=== PATIENT | male | born 1970 | race Caucasian/White ===

== ENCOUNTER 2024-11-07 13:34 | Emergency (ER) | payer MEDICAID ==
[~2024-11-07] VITALS: Ht 170.2 cm; Wt 125.0 kg
--- NOTE | 2024-11-07 14:05 | ELECTROCARDIOGRAPH REPORT ---
[facility] Test Date: 2024-11-07 Test Time: 14:03:44 Pat Name: ROOSEVELT ENCARNACION Department: [facility]- Patient ID: [facility]-[id number] Room: Gender: M [employer] Drawer In: : 1970 Requested By: GIANCARLO GARCIA Order Number: [id number] Reading MD: Measurements Intervals [place] Rate: 50 P: 17 MA: 177 QRS: 63 QRSD: 146 T: 25 QT: 455 QTc: 415 Interpretive Statements Sinus bradycardia Right bundle branch block Baseline wander in lead(s) III Please click the below link to view image of tracing.
[2024-11-07] MEDS: normal saline 1000ML IV soln IVB ONE (14:25)
[2024-11-07] MEDS: ketorolac trometh 30MG/ML vial 30 MG/ML VIAL IV ONE ×2 (14:25→17:57)
--- NOTE | 2024-11-07 14:30 | Physician Documentation ---
History of Present Illness ~ Chief Complaint: Headache Stated Complaint: MIGRAINE Time Seen by MD: 14:18 Source: patient Mode of Arrival: EMS, Ambulatory Exam Limitations: no limitations HPI 54-year-old male with complaints of migraine headache for 3 weeks. Patient states that this was onset a fall 3 weeks ago where he landed on his knee and his back he has been evaluated by his primary care provider patient lives in [place] but came down here because he felt like he was getting better care. Patient has an MRI scheduled for his lumbar spine on November 28, 2024. Patient called a nursing hotline who told him to come in due to the migraine for 3 weeks. No weakness, chest pain or shortness of breath. Patient is on morphine at home for chronic pain and states that that did not help his migraine headache. Other medications [id number] included aspirin ibuprofen and Tylenol which did not help his migraine headache. Patient endorses photosensitivity and sensitivity to sound Medication Reconciliation Allergies: Coded Allergies: methadone (Verified Allergy, Severe, 11/07/24) Past Medical History Past Medical History: *MUSCULOSKELETAL*, Arthritis, Chronic Pain, Chronic Back Pain, Osteoarthritis Past Surgical History: noncontributory Lives In: Home Occupation: disabled Review of Systems All Other Systems at this time: Reviewed and Negative Neurological: Reports: see HPI Physical Exam Vital Signs: RN Vital Signs have been reviewed: Yes, Temperature: 98.4, Source: Oral, Heart Rate: 57, Respiratory Rate: 18, BP: 124/79, Pulse Oximetry: 93, Weight: 125.000 Oxygen Flow Rate: 0 General Appearance: alert, WD/WN, no apparent distress ENT: normal ENT inspection, PERRL/EOMI, TMs normal, moist mucous membranes, photophobia Nose: normal inspection Oropharynx: normal inspection, moist mucous membranes Head: normal inspection; No: swelling, ecchymosis, deformity Neck: non-tender, full range of motion, supple Respiratory: lungs clear, normal breath sounds, no respiratory distress Chest: no accessory muscle use Cardiovascular: regular rate, rhythm Gastrointestinal: normal palpation, non-tender, bowels sounds present Extremities: normal inspection, normal capillary refill Skin: warm/dry, normal color Neurologic: oriented x4 Motor / Sensory: no pronator drift; No: sensory deficit Psychiatric: normal mood/affect Progress Results/Orders Results/Orders Completed Orders - BRIDGETT HAMILTON MD Dexamethasone Inj (Decadron 10mg/Ml Inj) (11/07/24 20:11) Morphine 4mg/Ml Inj. (Morphine Inj.) (11/07/24 20:15) Medications Received in ER Medications (Trade) Dose Ordered Sig/Corey Route PRN Reason Start Time Stop Time Status Last Admin Dose Admin (morphine inj.) 4 mg ONCE ONCE IV 11/07/24 16:20 11/07/24 16:21 DC 11/07/24 16:25 4 MG (Zofran 4mg/2ml vial) 4 mg ONCE ONCE IV 11/07/24 16:20 11/07/24 16:21 DC 11/07/24 16:25 4 MG (Toradol inj. 30mg/ml) 30 mg ONCE ONCE IV 11/07/24 17:45 11/07/24 17:52 DC 11/07/24 17:57 30 MG (Decadron 10mg/ ml inj) 10 mg ONCE STAT IV 11/07/24 20:11 11/07/24 20:13 DC 11/07/24 20:33 10 MG (morphine inj.) 4 mg ONCE ONCE IV 11/07/24 20:15 11/07/24 20:16 DC 11/07/24 20:34 4 MG Vital Signs 11/07/24 11/07/24 11/07/24 11/07/24 13:37 13:59 14:30 15:35 Temp 98.4 Pulse 57 68 52 Resp 18 14 15 B/P (MAP) 124/79 134/85 (101) 114/82 (93) Pulse Ox 93 97 96 O2 Flow Rate 0 0 0 11/07/24 11/07/24 11/07/24 11/07/24 16:23 18:02 18:22 18:23 Temp 98.3 98.3 Pulse 47 48 60 Resp 16 16 19 19 B/P (MAP) 113/72 (86) 91/71 (78) 95/72 (80) Pulse Ox 97 98 98 O2 Flow Rate 0 0 11/07/24 20:34 Resp 16 Laboratory Tests Test 11/07/24 14:33 White Blood Count 7.6 Red Blood Count 4.98 Hemoglobin 14.6 Hematocrit 42.7 Mean Corpuscular Volume 85.7 Mean Corpuscular Hemoglobin 29.2 Mean Corpuscular Hemoglobin Concent 34.1 Red Cell Distribution Width 15.5 H Platelet Count 291 Mean Platelet Volume 7.3 L Neutrophils (%) (Auto) 57.6 Lymphocytes (%) (Auto) 31.3 Monocytes (%) (Auto) 8.5 Eosinophils (%) (Auto) 2.0 Basophils (%) (Auto) 0.6 Neutrophils # (Auto) 4.4 Lymphocytes # (Auto) 2.4 Monocytes # (Auto) 0.7 Eosinophils # (Auto) 0.2 Basophils # (Auto) 0.0 CBC Comment Sodium Level 137 Potassium Level 4.1 Chloride Level 103 Carbon Dioxide Level 27.0 Anion Gap 7 L Blood Urea Nitrogen 15 Creatinine 0.99 Estimated GFR/1.73 m2 78 BUN/Creatinine Ratio 15.2 Glucose Level 129 H Calcium Level 8.8 Albumin 3.5 Chemistry Comments EKG/XRAY/CT/US/VASC/MRI EKG : Additional Comment EKG 1403 sinus Mykel at 50, right bundle branch block. No acute ST-T abnormality CT : CT: head Impression CT CT HEAD Indication: Migraine x3 weeks EXAM DATE: 11/07/2024 02:36 PM COMPARISON: None TECHNIQUE: CT of the head without intravenous contrast. RADIATION DOSE: CTDIvol: 70 mGy, DLP: 1243 mGy*cm FINDINGS: There is no intracranial hemorrhage. There is a hyperdense lesion near the1 right petroclival junction /right prepontine cistern /right cavernous sinus measuring 2.3 x 2.5 cm The ventricles are midline and normal in size. Basilar cisterns are patent. Miranda-white differentiation is maintained. The paranasal sinuses and mastoids are well-pneumatized. Imaged portion of the orbits are unremarkable. IMPRESSION: Hyperdense lesion/ mass near the right petroclival junction/skull base /right cavernous sinus measuring 2.3 x 2.5 cm. Recommend MRI brain with and without contrast and neurosurgical consultation. Medical Decision Making Findings Patient complains of migraine status post fall which he denies head strike but landed on his knee and is receiving care including an MRI of his lumbar back that is been ordered. Unremarkable neurologic exam. Normal saline Toradol Benadryl and sumatriptan ordered for migraine headache CT scan to evaluate for any acute intracranial processes. CT Indicates a 2.3 x 2.5 mass at the base of the skull. Discussed findings with attending physician Dr. Pickard. Working on transfer with recommendations neurosurgery consult an MRI 183 spoke to transfer center at [facility] 7:00 p.m.: Care the patient was transferred to al from nurse practitioner Latanya. 7:40 p.m.: Case discussed with [facility] transfer center. The case was reviewed with neurosurgeon Dr. Nicola Sal. He reviewed the CT scan and suspect he has a benign meningioma. This does not require admission or transfer. He is happy to follow up with him in his outpatient clinic. However he will need a referral from his primary care doctor. Is also recommended he get an MRI with and without contrast through his primary care doctor. We are unable to obtain MRI after hours here. Patient is neurologically intact. All of the above was reviewed with the patient. Patient is stable for discharge. Requesting another dose of morphine prior to discharge for a severe headache. Patient is also going to be given Decadron 10 mg IV to see if this may help. Differential Dx:Considerations: Include: PATEL-Cluster, PATEL-Migraine, PATEL- Hypertensive, Close head injuyr, CVA, Mass lesion, Post-traumtic, Sinusitis, Temporal arteritis, Trigeminal neuralgia Departure Time of Disposition: 19:42 Disposition: 01 HOME / SELF CARE / HOMELESS Impression: Primary Impression: Headache Qualified Codes: R51.9 - Headache, unspecified Additional Impression: Meningioma Condition: Stable Discharge Instructions: Meningioma Additional Instructions: YOUR BRAIN TUMOR IS LIKELY BENIGN CALLED A MENINGIOMA. YOU MUST FOLLOW UP WITH YOUR PRIMARY CARE DOCTOR SOON POSSIBLE FOR: 1. REFERRAL TO [facility], NEUROSURGEON, DR. NICOLA SAL. OR REFERRAL TO OTHER NEUROSURGEON. 2. ORDER OUTPATIENT MRI WITH AND WITHOUT CONTRAST OF THE BRAIN Education Educated: Patient Educated regarding: diagnosis, treatment, need for follow up Signature Scribe Signature: No scribe Attestation: The note accurately reflects work and decisions made by me.Latanya Cifuentes - [employer] 11/07/24 14:30 LATANYA CIFUENTES NP Nov 07, 2024 14:30 BRIDGETT HAMILTON MD Nov 07, 2024 19:44
--- NOTE | 2024-11-07 14:57 | RADIOLOGY REPORT ---
CT CT HEAD Indication: Migraine x3 weeks EXAM DATE: 11/07/2024 02:36 PM COMPARISON: None TECHNIQUE: CT of the head without intravenous contrast. RADIATION DOSE: CTDIvol: 70 mGy, DLP: 1243 mGy*cm FINDINGS: There is no intracranial hemorrhage. There is a hyperdense lesion near the1 right petroclival junctio n /right prepontine cistern /right cavernous sinus measuring 2.3 x 2.5 cm The ventricles are midline and normal in size. Basilar cisterns are patent. Miranda-white differentiation is maintained. The paranasal sinuses and mastoids are well-pneumatized. Imaged portion of the orbits are unremarkabl e. IMPRESSION: Hyperdense lesion/ mass near the right petroclival junction/skull base /right cavernous sinus measuri ng 2.3 x 2.5 cm. Recommend MRI brain with and without contrast and neurosurgical consultation.
[2024-11-07 15:19] LABS: MEAN PLATELET VOLUME 7.3 FL (7.4-10.4); RED CELL DISTRIBUTION WIDTH 15.5 % (11.5-14.5)
[2024-11-07 15:21] LABS: CREATININE 0.99 MG/DL (0.60-1.10); TOTAL CARBON DIOXIDE 27.0 MMOL/L (24-32); eCRCL 79 ML/MIN; eGFR 78 ML/MIN
[2024-11-07] MEDS: ondansetron/PF 4mg/2ml inj IV ONE (16:25)
[2024-11-07] MEDS: morphine 4 MG/ML inj SYRINge IV ONE ×2 (16:25→20:34)
[2024-11-07 18:02] VITALS: TEMP 98.3
[2024-11-07] MEDS: dexamethasone sod phosphate 10mg/ml inj IV STA (20:33)
[2024-11-07 20:44] VITALS: BP 93/77; PULSE 47; RESP 18; O2SAT 94
== END 2024-11-07 20:47 | disposition home or self-care (01) ==
LOC: ER 13:35
DX: G43.909 Migraine, unspecified, not intractable, without status migrainosus (principal); D32.9 Benign neoplasm of meninges, unspecified; I49.8 Other specified cardiac arrhythmias; M19.90 Unspecified osteoarthritis, unspecified site
CPT/HCPCS: 36415; 70450; 80048; 85025; 93005; 96374; 96375; 96376; 99285; J1100; J1885; J2270; J2405; J7030

== ENCOUNTER 2024-11-13 06:52 | Inpatient (IN) | payer MEDICAID ==
[~2024-11-13] VITALS: Ht 177.8 cm; Wt 120.5 kg
--- NOTE | 2024-11-13 07:31 | Physician Documentation ---
History of Present Illness ~ Chief Complaint: Headache Stated Complaint: MIGRAINE,BLURRED VISION Time Seen by MD: 07:25 HPI Patient presents to the emergency room for evaluation of headache and confusion. Patient has history of migraines and was seen here recently and diagnosed with a brain mass. Aftab was consulted they believe he had was a hemangioma however he needed has been MRI and referral from his primary care. He is primary care lives over in [place] in his over here trying to reconnect with his daughter and get better health care. He was seen at [facility] yesterday that has noted to be intoxicated at that time. CT scan was also performed of patient's abdomen and pelvis with contrast yesterday which was negative. There is some report of vomiting blood from [facility] records and with discharge instructions were to follow up with his doctor regarding referral for GI. Medication Reconciliation Allergies: Coded Allergies: methadone (Verified Allergy, Severe, 11/07/24) Past Medical History Past Medical History: *MUSCULOSKELETAL*, Arthritis, Chronic Pain, Chronic Back Pain, Osteoarthritis Past Surgical History: noncontributory Lives In: Home Occupation: disabled Review of Systems ROS All review of systems negative except as per HPI Physical Exam Vital Signs: Temperature: 98.0, Source: Temporal, Heart Rate: 79, Respiratory Rate: 18, BP: 142/76, Pulse Oximetry: 93, Weight: 120.500 Oxygen Flow Rate: 0 Physical Exam General: Patient is awake, alert, oriented x4 in no acute distress. Appears intoxicated Head: Normocephalic and atraumatic. Eyes: Conjunctival normal. EOMI. PERRL. ENT: Mucous membranes moist. Neck: Supple, trachea is midline. Chest: Clear to auscultation bilaterally without rales, rhonchi, or wheezes. There is no accessory muscle use or retractions. Cardiac: RRR without murmurs, gallops, or rubs. Abd: Soft, nondistended, nontender, with normoactive bowel sounds. No guarding, rebound, or rigidity. Extremities: Normal strength. Normal range of motion. No deformities or edema. : Good rectal tone, brown stools, guaiac positive Progress Results/Orders Results/Orders Orders - DAVID PAUL MD Mri Head (11/13/24 10:30) Page Hospitalist (11/13/24 13:51) Fill Out Med Reconciliation (11/13/24 13:51) Page Hospitalist (11/13/24 13:54) Fill Out Med Reconciliation (11/13/24 13:54) Completed Orders - DAVID PAUL MD Electrocardiogram (11/13/24 07:34) Cbc/Diff (11/13/24 07:34) BMP (11/13/24 07:34) Hs Troponin I W Calculations (11/13/24 07:34) MG (11/13/24 07:34) Mri Head (11/13/24 10:30) Ethanol (11/13/24 07:35) Ketorolac Trometh 15mg/Ml Vial (Toradol (11/13/24 12:45) Normal Saline 1000ml (0.9% Sodium Chlori (11/13/24 12:45) Prochlorperazine Inj (Compazine Inj) (11/13/24 12:45) Diphenhydramine Inj (Benadryl Inj.) (11/13/24 12:45) Acetaminophen 325mg Tablet (Tylenol Tabl (11/13/24 12:45) Pantoprazole 40mg Iv (Protonix 40mg Iv) (11/13/24 13:55) Ua W/Microscopic, Cult If Ind (11/13/24 13:40) Occult Bld Stool (11/13/24 13:47) Medications Received in ER Medications (Trade) Dose Ordered Sig/Corey Route PRN Reason Start Time Stop Time Status Last Admin Dose Admin (Toradol injection) 15 mg ONCE ONCE IV 11/13/24 12:45 11/13/24 12:46 DC 11/13/24 13:32 15 MG Sodium Chloride 1,000 ml @ 1,000 mls/hr ONCE ONCE IV 11/13/24 12:45 11/13/24 13:44 DC 11/13/24 13:31 1,000 MLS/HR (Compazine inj) 10 mg ONCE ONCE IV 11/13/24 12:45 11/13/24 12:46 DC 11/13/24 13:31 10 MG (Benadryl inj.) 25 mg ONCE ONCE IV 11/13/24 12:45 11/13/24 12:46 DC 11/13/24 13:31 25 MG (Tylenol tablet) 650 mg ONCE ONCE PO 11/13/24 12:45 11/13/24 12:46 DC 11/13/24 13:32 650 MG (Protonix 40mg IV) 80 mg ONCE ONCE IV 11/13/24 13:55 11/13/24 13:56 DC 11/13/24 14:46 80 MG (Mccrory 10/325mg tab) 1 tab Q4H PRN PO SEVERE PAIN 7-10 11/13/24 14:00 11/13/24 15:30 1 TAB Sodium Chloride 1,000 ml @ 100 mls/hr Q10H IV 11/13/24 14:00 11/13/24 14:47 100 MLS/HR (thiamine inj.) 200 mg TID IV 11/13/24 14:00 11/16/24 13:59 11/13/24 14:46 200 MG (folic acid inj.) 1 mg DAILY IV 11/13/24 14:00 11/16/24 13:59 11/13/24 15:29 1 MG Vital Signs 11/13/24 11/13/24 11/13/24 11/13/24 06:58 07:50 08:06 09:00 Temp 98.0 98.0 98.0 Pulse 79 60 63 Resp 18 16 65 15 B/P (MAP) 142/76 132/80 (97) 124/90 (101) Pulse Ox 93 93 96 O2 Flow Rate 0 0 0 11/13/24 11/13/24 11/13/24 11/13/24 10:00 11:40 12:00 13:32 Temp 98.0 Pulse 62 65 57 Resp 15 18 19 15 B/P (MAP) 132/96 (108) 144/93 (110) 149/81 (103) Pulse Ox 97 95 98 O2 Flow Rate 0 11/13/24 14:00 Temp 97.6 Pulse 57 Resp 16 B/P (MAP) 101/85 (90) Pulse Ox 98 Laboratory Tests Test 11/13/24 07:44 11/13/24 13:40 11/13/24 13:47 White Blood Count 7.9 Red Blood Count 5.39 Hemoglobin 15.7 Hematocrit 46.5 Mean Corpuscular Volume 86.4 Mean Corpuscular Hemoglobin 29.1 Mean Corpuscular Hemoglobin Concent 33.7 Red Cell Distribution Width 15.5 H Platelet Count 290 Mean Platelet Volume 6.8 L Neutrophils (%) (Auto) 66.8 Lymphocytes (%) (Auto) 23.0 Monocytes (%) (Auto) 9.1 Eosinophils (%) (Auto) 0.7 Basophils (%) (Auto) 0.4 Neutrophils # (Auto) 5.2 Lymphocytes # (Auto) 1.8 Monocytes # (Auto) 0.7 Eosinophils # (Auto) 0.1 Basophils # (Auto) 0.0 CBC Comment Sodium Level 142 Potassium Level 4.4 Chloride Level 105 Carbon Dioxide Level 28.3 Anion Gap 9 Blood Urea Nitrogen 23 H Creatinine 1.35 H Estimated GFR/1.73 m2 55 BUN/Creatinine Ratio 17.0 Glucose Level 105 H Calcium Level 8.6 Magnesium Level 2.1 Troponin I High Sensitivity 5 Albumin 3.8 Chemistry Comments Ethyl Alcohol Level 138 H Urine Specimen Description Cln catch midstream Urine Color Yellow Urine Clarity Clear Urine pH 6.0 Urine Specific [place] >=1.030 Urine Protein Trace Urine Glucose (UA) Negative Urine Ketones Negative Urine Occult Blood Negative Urine Nitrite Negative Urine Bilirubin Negative Urine Urobilinogen 1.0 Urine Leukocyte Esterase Negative Urine RBC 0-2 Urine WBC 0-4 Urine Squamous Epithelial Cells Few Urine Transitional Epithelial Cells Few Urine Bacteria 2+ Urine Culture Indicated Not ind Volume Urine Centrifuged 10 ml Urine Comment Stool Occult Blood Positive H EKG/XRAY/CT/US/VASC/MRI EKG : Additional Comment EKG interpreted by myself shows time of 0749, rate 61, sinus rhythm, normal axis, no ST changes MRI : Impression Exam: MRI HEAD EXAM: MR MRI HEAD HISTORY: brain mass COMPARISON: CT CT HEAD on DOS: 11/07/24 TECHNIQUE: MRI was performed utilizing multiple appropriate imaging planes and pulse sequences. FINDINGS: Redemonstration of a 2.8 x 2.2 cm enhancing mass at the right petroclival junction extending towards and encasing the right cavernous sinus. The lesion extends inferiorly into the pre medullary space with slight abutment of the right side of the basilar artery. There is T2 hyperintensity with mild restricted diffusion within the mass. The flow voids within the cavernous sinuses are preserved. The ventricles are normal in size. There is no midline shift or mass effect. There is no acute infarct. The calvarium is unremarkable. IMPRESSION: 1. 2.8 cm right petroclival mass encasing the right cavernous sinus and abutting the right basilar artery. Finding most likely represents a meningioma. Medical Decision Making Findings Patient presented to the emergency room with continued headache similar to previ ous presentation. Differentials include but are not limited to migraine, cancer, angioma, meningitis therefore emergent labs and imaging indicated. Patient has very poor follow up and we will be difficult for him to get an MRI therefore MRI was performed in our emergency room which shows likely meningioma. The need to follow up with primary care for referrals again reinforced. Headache improved. I do not suspect meningitis and he had not feel the patient requires an LP. Noted alcohol intoxication. Problem is that he also admits to hematemesis with guaiac-positive stools. Protonix initiated and we will admit for further investigation. Departure Admitted to Inpatient Unit: yes, to hospitalist Impression: Primary Impression: Migraine Additional Impressions: GI bleed Likely meningioma Condition: Stable Additional Instructions: Your MRI today shows you have a meningiom. The read is below Exam: MRI HEAD EXAM: MR MRI HEAD HISTORY: brain mass COMPARISON: CT CT HEAD on DOS: 11/07/24 TECHNIQUE: MRI was performed utilizing multiple appropriate imaging planes and pulse sequences. FINDINGS: Redemonstration of a 2.8 x 2.2 cm enhancing mass at the right petroclival junction extending towards and encasing the right cavernous sinus. The lesion extends inferiorly into the pre medullary space with slight abutment of the right side of the basilar artery. There is T2 hyperintensity with mild restricted diffusion within the mass. The flow voids within the cavernous sinuses are preserved. The ventricles are normal in size. There is no midline shift or mass effect. There is no acute infarct. The calvarium is unremarkable. IMPRESSION: 1. 2.8 cm right petroclival mass encasing the right cavernous sinus and abutting the right basilar artery. Finding most likely represents a meningioma. You still need to follow up with PCP for neurologic referral. Referrals: NO PRIMARY CARE PROVIDER (PCP) Education Educated: Patient Educated regarding: diagnosis, treatment Signature Scribe Signature: No scribe Attestation: The note accurately reflects work and decisions made by me.David Paul MD 11/13/24 13:34 DAVID PAUL MD Nov 13, 2024 07:31
--- NOTE | 2024-11-13 07:52 | ELECTROCARDIOGRAPH REPORT ---
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 Matt Rizzo Measurements Intervals [place] Rate: 61 P: 26 AK: 170 QRS: 77 QRSD: 155 T: 48 QT: 431 QTc: 434 Interpretive Statements Sinus rhythm Right bundle branch block Electronically Signed On 11-13-2024 18:20:[address] Matt Rizzo Please click the below link to view image of tracing.
[2024-11-13 07:53] LABS: MEAN PLATELET VOLUME 6.8 FL (7.4-10.4); RED CELL DISTRIBUTION WIDTH 15.5 % (11.5-14.5)
[2024-11-13 08:06] LABS: CREATININE 1.35 MG/DL (0.60-1.10); ETHANOL 138 MG/DL (<10); TOTAL CARBON DIOXIDE 28.3 MMOL/L (24-32); eCRCL 64 ML/MIN; eGFR 55 ML/MIN
--- NOTE | 2024-11-13 12:28 | RADIOLOGY REPORT ---
EXAM: MR MRI HEAD HISTORY: brain mass COMPARISON: CT CT HEAD on DOS: 11/07/24 TECHNIQUE: MRI was performed utilizing multiple appropriate imaging planes and pulse sequences. FINDINGS: Redemonstration of a 2.8 x 2.2 cm enhancing mass at the right petroclival junction extending towards and encasing the right cavernous sinus. The lesion extends inferiorly into the pre medullary space w ith slight abutment of the right side of the basilar artery. There is T2 hyperintensity with mild res tricted diffusion within the mass. The flow voids within the cavernous sinuses are preserved. The alex tricles are normal in size. There is no midline shift or mass effect. There is no acute infarct. The calvarium is unremarkable. IMPRESSION: 1. 2.8 cm right petroclival mass encasing the right cavernous sinus and abutting the right basilar ar chanel. Finding most likely represents a meningioma.
[2024-11-13] MEDS: normal saline 1000ml 1,000 ML IV ONE ×2 (13:31→15:33)
[2024-11-13] MEDS: ketorolac trometh 15mg/ml vial 15 MG/ML ML IV ONE (13:32)
[2024-11-13 13:48] LABS: LEUKOCYTE ESTERASE ,URINE NEGATIVE (Neg); NITRITES, URINE NEGATIVE (Neg); OCCULT BLOOD,URINE NEGATIVE (Neg)
[2024-11-13 13:52] LABS: UA COLLECTION TYPE CLN CATCH MIDSTREAM
[2024-11-13 13:56] LABS: SQUAMOUS EPITHELIAL CELL,UR FEW /LPF (FEW)
[2024-11-13] MEDS ORDERED: ondansetron 4mg rapidly disintigrating tab PO PRN (14:00)
[2024-11-13] MEDS ORDERED: potassium Cl 20 mEq SR tablet PO PRN ×2 (14:00)
[2024-11-13] MEDS ORDERED: haloperidol lactate 5mg/ml inj IM PRN (14:00)
[2024-11-13] MEDS ORDERED: magnesium sulf-water 4G/100mL 100 ML IV PRN (14:00)
[2024-11-13] MEDS ORDERED: magnesium sulf-water 2g/50mL 50 ML IV PRN (14:00)
[2024-11-13] MEDS ORDERED: magnesium hydroxide 30ml (MOM) UD suspension PO PRN (14:00)
[2024-11-13] MEDS ORDERED: potassium Cl 40MEQ/1/2NS 520ml 520 ML IV PRN (14:00)
[2024-11-13] MEDS ORDERED: mag hydrox/Alum hydrox/simeth 30ml oral suspension PO PRN (14:00)
[2024-11-13] MEDS ORDERED: metoclopramide 5 mg/ml inj IV PRN (14:00)
[2024-11-13] MEDS ORDERED: HYDROcodone/acetaminophen 5mg/325mg tablet PO PRN (14:00)
[2024-11-13 14:30] LABS: OCCULT BLOOD STOOL POSITIVE (Neg)
--- NOTE | 2024-11-13 14:33 | HISTORY AND PHYSICAL ---
History & Physical Providers to CC ~ History of Present Illness Reason for Admit\Complaint: GIB, ETOH, encephalopathy, LIS History of Present Illness Jesse Kaye is a 54-year-old male with a past medical history of chronic alcoholism, colonic polyps, recent diagnosis of meningioma who presents to the ED with chief complaint of headache, confusion, black stool x [address]/CAD, CVA, cardiac arrhythmia, DVT/PE, or seizures. Patient denies chest pain, palpitations, shortness of breath, abdominal pain, n/v/d, fever, chills, hematemesis slurred speech, blurry vision, hearing deficits, weakness/numbness of extremities. Patient went to [facility] yesterday for similar problems including headache. CT abdomen/pelvis was done at [facility] yesterday which came back negative. Patient returns to ED today for ongoing headache and confusion. During initial assessment patient is A&Ox3 and clinically and hemodynamically stable. Patient reports chronic alcoholism with history of admission to rehab. Reported last alcohol intake is yesterday. Initial findings are notable for elevated ethyl alcohol level, positive fecal occult stool, abnormal renal function, MRI head findings of 2.8 cm right petroclival mass likely meningioma. Pertinent negative findings are remarkable hemogram. GI Dr. Ramirez is consulted. Patient is to be admitted for further workups and treatment. Allergies: Coded Allergies: methadone (Verified Allergy, Severe, 11/07/24) Past Medical History Past Medical History Chronic alcoholism Colonic polyps Hypertension Atrial fibrillation Obesity Past Surgical History Surgical History Comment Colonic polyp resection Past Social History Social History Comment Alcohol: Chronic, liquor, 3-4 days/week Tobacco: 40 pack year history, current smoker Illicit drug use: Denies Living situation: Lives at home with pain ROS ROS Other than positives in HPI, all 14 review of systems are negative Exam Vitals: Vital Signs Date Time Temp Pulse Resp B/P (MAP) Pulse Ox O2 Delivery O2 Flow Rate FiO2 11/13/24 13:32 15 11/13/24 12:00 57 149/81 (103) 98 11/13/24 10:00 98.0 0 General: Generalized weakness, A&Ox 3, NAD HEENT: Normocephalic, PERRLA Neck: Supple, trachea midline, no JVD Chest: Clear to auscultation bilaterally Cardiovascular: RRR, S1&S2 Abdomen: Soft and nontender Extremities: No cyanosis/clubbing/or edema Central Nervous System: CN II-XII intact, no focal deficits Musculoskeletal: No paraspinal muscle tenderness, no muscle spasm Skin: Warm and intact Diagnostic Data Last Recorded Lab Results: 11/13/24 0744 11/13/24 0744 Counseling Services Smoking & Tobacco Cessation: > 10 Minutes Additional Plan Assessment & Plan GIB Alcohol intoxication Prerenal LIS 2/2 vasomotor nephropathy/dehydration Hx colonic polyps Atrial fibrillation, CHADS-VASc 1 HTN Tobacco abuse Chronic alcoholism Meningioma Class II obesity -MRI head findings of 2.8 cm right petroclival mass likely meningioma -start PPI, mild alcohol withdrawal protocol with thiamine, folic acid, nicotine patch, IVF, strict I&Os -GI Dr. Ramirez consulted with plans for EGD tomorrow; follow UDS; pending med rec DVT/VTE Prophylaxis: SCDs Code status: Full Code I spent a total of 16 minutes on smoking cessation education. I provided extensive counseling regarding smoking cessation. I spent a total of 35 minutes discussing Advanced Care Planning measures with the patient. Advance care planning: Discussed with patient the importance of advance care planning in case of emergent situation. We discussed various resuscitative measures/ ACP with the patient at the time of admission. Patient voiced understanding and patient has decided on a full code status. Date of Service: Nov 13, 2024 Billing Provider: IRENE SOLORIO Common Visit Codes: 93840-[id number] INP/OBS CARE (HIGH) Secondary Visit Codes: 18990-PWSOW CHNG SMOKING >10MIN, 44190-BZHNUUVX CARE PLAN 30 MINUTES IRENE SOLORIO Nov 13, 2024 14:33
[2024-11-13] MEDS: thiamine 100mg/ml 2ml inj. IV SCH (14:46)
[2024-11-13] MEDS: normal saline 1000ml 1,000 ML IV SCH (14:47)
[2024-11-13] MEDS: loperamide 2mg capsule PO ONE ×2 (14:53→18:28)
[2024-11-13] MEDS: nicotine 21mg patch - 24 hr TD ONE (15:29)
[2024-11-13] MEDS: folic acid 1mg/0.2ml inj IV SCH (15:29)
[2024-11-13] MEDS: HYDROcodone/acetaminophen 10/325mg tab PO PRN (15:30)
[2024-11-13 16:40] LABS: URINE AMPHETAMINE SCREEN NEGATIVE (Neg); URINE BARBITUATE SCREEN NEGATIVE (Neg); URINE BENZODIAZEPINES SCREEN POSITIVE (Neg); URINE CANNABINOID SCREEN NEGATIVE (Neg); URINE COCAINE SCREEN NEGATIVE (Neg); URINE METHADONE SCREEN NEGATIVE (Neg); URINE OPIATE SCREEN POSITIVE (Neg); URINE PHENCYCLIDINE SCREEN NEGATIVE (Neg)
[2024-11-13 16:45] VITALS: BP 152/77; PULSE 81; RESP 20; TEMP 97.8; O2SAT 96
[2024-11-13 17:34] VITALS: RESP 20; O2SAT 96
[2024-11-13 18:00] VITALS: BP 151/78; PULSE 67; RESP 16; TEMP 97.2; O2SAT 95
--- NOTE | 2024-11-13 18:57 | CONSULTATION ---
DATE OF CONSULTATION: 11/13/2024 DICTATING PHYSICIAN: Mason Ramirez MD REASON FOR CONSULTATION: Hematemesis. HISTORY OF PRESENT ILLNESS: The patient is 54 years old with history of chronic alcoholism, drinking about a pint of alcohol yesterday, came in because of 2 episodes of hematemesis. He has been having black tarry stools for about a week. The patient seems to be not very reliable and not a historian. He has given different history to different physicians involved in his care so far. He has a history of colon polyps as well. He has a history of hypertension and atrial fibrillation. Denies taking excessive aspirin or nonsteroidal antiinflammatories. PAST MEDICAL HISTORY: As above. FAMILY AND PERSONAL HISTORY: Noncontributory. He drinks alcohol 3 to 4 days a week, heavy amount. REVIEW OF SYSTEMS: Essentially same as history of present illness. PHYSICAL EXAMINATION: GENERAL: He is awake, alert, appears to be in no apparent distress. VITAL SIGNS: Normal. NECK: Supple. No thyromegaly. No JVD. No significant adenopathy. HEENT: Oral cavity within normal limits. HEART: Normal. LUNGS: Normal. ABDOMEN: Soft, nontender. No masses. No organomegaly. Bowel sounds are present. EXTREMITIES: Reveal no clubbing, cyanosis or edema. LABORATORY VALUES: Reviewed, which revealed hemoglobin of 16.7, platelet count of 290. Chemistries are essentially unremarkable. Alcohol level was 138. He was Hemoccult positive. IMPRESSION: A 54-year-old gentleman with history of alcoholism, admitted with hematemesis, also has history of alcoholism, peptic ulcer disease and alcohol-induced gastropathy or possible likely causes, unlikely esophageal or gastric varices. The patient is hemodynamically stable at this time. RECOMMENDATIONS: Continue current management and diagnostic endoscopy tomorrow. The risks and benefits explained, understands and wishes to proceed. Further management will depend upon results of endoscopy. Mason Ramirez MD TID: [id number] RECEIPT: [id number] MELVIN/JAE
[2024-11-13] MEDS: docusate sod 100mg capsule PO SCH (19:21)
[2024-11-13 19:41] VITALS: RESP 16; O2SAT 94
[2024-11-13] MEDS: K and/or MAG REPLACEMENT MC SCH (19:53)
[2024-11-13 22:00] VITALS: BP 154/78; PULSE 77; RESP 16; TEMP 98.1; O2SAT 91
[2024-11-14] VITALS (20 sets, daily range): BP systolic 125–163; BP diastolic 65–107; PULSE 54–118; RESP 14–20; TEMP 96.3–98.4; O2SAT 89–98
[2024-11-14 05:01] LABS: MEAN PLATELET VOLUME 7.1 FL (7.4-10.4); RED CELL DISTRIBUTION WIDTH 15.1 % (11.5-14.5)
[2024-11-14 05:18] LABS: CREATININE 1.03 MG/DL (0.60-1.10); TOTAL CARBON DIOXIDE 26.4 MMOL/L (24-32); eCRCL 84 ML/MIN; eGFR 75 ML/MIN
[2024-11-14] MEDS: multivitamins, therapeutics tablet PO SCH (07:12)
[2024-11-14] MEDS: nicotine 21mg patch - 24 hr TD SCH (07:12)
--- NOTE | 2024-11-14 09:49 | PROGRESS NOTE ---
Daily Progress Note Providers to CC ~ Boucher-Non Protocol Boucher Indications Met/Not Met: F/C Indications Not Met Antibiotic Timeout Antibiotic Ordered?: No Subjective No acute events overnight. Patient examined at bedside. No new complaints, not in acute distress. Patient denies chest pain, sob, palpitations, abdominal pain, n/v. Has diarrhea. No DTs requiring BZD as of this morning. Vss, labs notable for a drop of Hgb by 2.3g/dL. EGD today. Objective Vital Signs Date Time Temp Pulse Resp B/P (MAP) Pulse Ox O2 Delivery O2 Flow Rate FiO2 11/14/24 08:00 18 96 Room Air 11/14/24 06:30 48 11/14/24 06:00 98.4 147/88 (107) 11/13/24 19:41 0.0 Result Diagram: 11/14/2443811/14/24438 Physical Exam General: Generalized weakness, A&Ox 3, NAD HEENT: Normocephalic, PERRLA Neck: Supple, trachea midline, no JVD Chest: Clear to auscultation bilaterally Cardiovascular: RRR, S1&S2 Abdomen: Soft and nontender Extremities: No cyanosis/clubbing/or edema Central Nervous System: CN II-XII intact, no focal deficits Musculoskeletal: No paraspinal muscle tenderness, no muscle spasm Skin: Warm and intact Problem\Assessment\Plan Assessment & Plan GIB Alcohol intoxication Prerenal LIS 2/2 vasomotor nephropathy/dehydration Hx colonic polyps Atrial fibrillation, CHADS-VASc 1 HTN Tobacco abuse Chronic alcoholism Meningioma Class II obesity -MRI head findings of 2.8 cm right petroclival mass likely meningioma -start PPI, mild alcohol withdrawal protocol with thiamine, folic acid, nicotine patch, IVF, strict I&Os -GI Dr. Ramirez consulted with plans for EGD tomorrow; follow UDS; pending med rec -11/14: drop of Hgb by 2.3g/dL, EGD today DVT/VTE Prophylaxis: SCDs Code status: Full Code Date of Service: Nov 14, 2024 Billing Provider: IRENE SOLORIO Common Visit Codes: [id number] INP/OBS CARE(HIGH) IRENE SOLORIO Nov 14, 2024 09:49
[2024-11-14] MEDS ORDERED: propofol inj 20 ML IV ONE (12:08)
[2024-11-14] MEDS ORDERED: MIDAZolam 1 MG/ML 5ML VIAL ONE (12:08)
[2024-11-14] MEDS ORDERED: succinylcholine 20mg/ml inj IV ONE (12:08)
[2024-11-14] MEDS: GADOTERATE MEGLUMINE 7.5 MMOL/15 ML VIAL IV ONE (13:58)
[2024-11-14] MEDS: ondansetron/PF 4mg/2ml inj IV PRN (13:59)
[2024-11-14] MEDS: loperamide 2mg capsule PO ONE (15:02)
[2024-11-14] MEDS ORDERED: LORA-269 PO (15:45)
[2024-11-14] MEDS ORDERED: GABA-530 PO (15:45)
[2024-11-14] MEDS ORDERED: PARO10TA4 PO (15:45)
[2024-11-14] MEDS ORDERED: ATOR10TA87 PO (15:45)
[2024-11-14] MEDS ORDERED: METO-411 PO (15:45)
[2024-11-14] MEDS ORDERED: LOSA-415 PO (15:45)
[2024-11-14] MEDS ORDERED: LIDO1ADH67 TOP (15:45)
[2024-11-14] MEDS ORDERED: NICO-503 PO (15:45)
[2024-11-14] MEDS ORDERED: DIAZ-351 PO (15:45)
[2024-11-14] MEDS ORDERED: THIA50TA10 PO (15:45)
[2024-11-14] MEDS ORDERED: LOMOTRIGINE PO (15:45)
[2024-11-14] MEDS ORDERED: GABA-1405 PO (15:45)
[2024-11-14] MEDS ORDERED: MORP30CP13 PO (15:45)
[2024-11-15 06:00] VITALS: BP 150/87; PULSE 54; RESP 16; TEMP 97.6; O2SAT 98
[2024-11-15 06:56] LABS: MEAN PLATELET VOLUME 7.9 FL (7.4-10.4); RED CELL DISTRIBUTION WIDTH 14.9 % (11.5-14.5)
[2024-11-15 07:23] LABS: CREATININE 1.01 MG/DL (0.60-1.10); TOTAL CARBON DIOXIDE 23.2 MMOL/L (24-32); eCRCL 85 ML/MIN; eGFR 77 ML/MIN
[2024-11-15] MEDS: hydrALAZINE 20mg/ml inj. IV PRN (09:29)
[2024-11-15 10:00] VITALS: BP 178/101; PULSE 56; RESP 18; TEMP 98; O2SAT 97
[2024-11-15] MEDS ORDERED: hydrALAZINE 20mg/ml inj. IV STA (11:04)
[2024-11-15] MEDS ORDERED: NOR5T PO ×2 (11:12→11:59)
[2024-11-15] MEDS ORDERED: LOSA50TA64 PO (11:12)
[2024-11-15] MEDS ORDERED: PANT40TA54 PO ×2 (11:18→11:59)
[2024-11-15] MEDS: hydrALAZINE 20mg/ml inj. IV ONE (11:23)
[2024-11-15] MEDS ORDERED: HYDR25TA90 PO (11:25)
[2024-11-15] MEDS ORDERED: hyDRALAzine tablet PO (11:59)
[2024-11-15] MEDS ORDERED: LOSA100T58 PO (11:59)
[2024-11-15 12:00] VITALS: BP 137/92; PULSE 72; RESP 18; TEMP 98.2; O2SAT 98
[2024-11-15] MEDS ORDERED: isoflurane 100ml inhalation liquid IH ONE (12:19)
--- NOTE | 2024-11-15 13:15 | DISCHARGE SUMMARY ---
Discharge Summary Providers to CC ~ Discharge Summary Admission Diagnosis: metabolic encephalopathy, alcohol intoxication, GIB Hospital Course DATE OF ADMISSION: 11/13/24 DATE OF DISCHARGE: 11/15/24 Discharge Diagnosis\Comment: GIB Esophageal ulcer Gastritis Normocytic anemia Alcohol intoxication Metabolic encephalopathy 2/2 alcohol intoxication- POA Prerenal LIS 2/2 vasomotor nephropathy/dehydration Hx colonic polyps Atrial fibrillation, CHADS-VASc 1 HTN Tobacco abuse Chronic alcoholism Meningioma Class II obesity Operations\Procedures: EGD Consultants: GI Mason Sims Complications: None Condition on DC: Stable New Medications: Amlodipine Besylate (Amlodipine Besylate) 5 Mg Tablet 1 TAB PO DAILY for 30 Days, #60 TAB 0 Refills Losartan Potassium (Losartan Potassium) 100 Mg Tablet 1 TAB PO DAILY for 90 Days, #90 TAB 0 Refills Pantoprazole Sodium (Pantoprazole Sodium) 40 Mg Tablet.dr 40 MG PO BID for 30 Days, #60 TAB.SR [hyDRALAzine tablet] () 10 MG TABLET 10 MG PO Q8H for 30 Days, #90 Continued Medications: Atorvastatin Calcium* (Lipitor*) 10 Mg Tablet 1 TAB PO HS for 30 Days, #30 TAB Gabapentin (Gabapentin) 100 Mg Capsule 3 CAP PO QAM for 30 Days, #90 CAP 0 Refills Gabapentin (Gabapentin) 600 Mg Tablet 1 TAB PO HS for 30 Days, #90 TAB 0 Refills Lidocaine (Lidocaine Pain Relief) 4 % Adh..patch 1 PATCH TOP DAILY for 30 Days, #30 PATCH 0 Refills [Lomotrigine] () 300 MG PO QAM Lorazepam (Ativan) 1 Mg Tablet 1 TAB PO Q6H PRN PRN for anxiety for 30 Days, #60 TAB 0 Refills Morphine Sulfate (Morphine Sulfate ER) 30 Mg Cpmp.24hr 1 CAP PO Q12H PRN PRN for pain for 30 Days, #60 CAP 0 Refills Nicotine Polacrilex* (Commit Lozenge*) 4 Mg Lozenge 1 LOZENGE PO Q2H for 20 Days, #240 LOZENGE Paroxetine Hcl (PAXIL tablet) 10 Mg Tablet 2 TAB PO DAILY for 30 Days, #30 TAB 0 Refills Thiamine HCl (Vitamin B-1) 50 Mg Tablet 2 TAB PO DAILY for 30 Days, #60 TAB 0 Refills Discontinued Medications: Diazepam (Diazepam) 5 Mg Tablet 1 TAB PO Q12H PRN PRN for anxiety for 30 Days, #60 TAB 0 Refills Losartan Potassium* (Cozaar*) 25 Mg Tablet 2 TAB PO DAILY for 30 Days, #30 TAB Metoprolol Succinate (Metoprolol Succinate) 100 Mg Tab.sr.24h 100 MG PO QAM, TAB.SR Discharge Summary: History of Present Illness Jesse Kaye is a 54-year-old male with a past medical history of chronic alcoholism, colonic polyps, recent diagnosis of meningioma who presents to the ED with chief complaint of headache, confusion, black stool x 1 week. Patient denies prior AR/CAD, CVA, cardiac arrhythmia, DVT/PE, or seizures. Patient denies chest pain, palpitations, shortness of breath, abdominal pain, n/v/d, fever, chills, hematemesis slurred speech, blurry vision, hearing deficits, weakness/numbness of extremities. Patient went to [facility] yesterday for similar problems including headache. CT abdomen/pelvis was done at [facility] yesterday which came back negative. Patient returns to ED today for ongoing headache and confusion. During initial assessment patient is A&Ox3 and clinically and hemodynamically stable. Patient reports chronic alcoholism with history of admission to rehab. Reported last alcohol intake is yesterday. Patient is to be admitted for further workups and treatment. Hospital Course Initial findings were notable for elevated ethyl alcohol level, positive fecal occult stool, abnormal renal function, MRI head findings of 2.8 cm right petroclival mass likely meningioma. Pertinent negative findings are remarkable hemogram. GI Dr. Ramirez was consulted and patient underwent EGD with findings of esophageal ulcer with stigmata of recent bleeding, gastritis which was biopsied. Patient was treated with PPI, started on mild alcohol withdrawal protocol, thiamine, folic acid, intravenous fluids. Case was also discussed with neurosurgeon Almas Ling who agreed for outpatient follow-up for findings of meningioma. Patient did not experience further complications throughout the entire hospital stay and remained clinically and hemodynamically stable. Patient did not display signs of DTs. Patient was seen and examined on the day of discharge. On day of discharge, vss and labs unremarkable. H/H remained stable. All labs, diagnostic workups, discharge plan discussed with patient in details during visit before discharge. All questions and concerns answered to the best of my professional knowledge. Patient is independent with ambulation. Patient is to be discharged to home to self and to follow-up with PCP and neurosurgeon Dr. Avina, GI Dr. Ramirez within 2 weeks. Physical Exam General: A&Ox 3, NAD HEENT: Normocephalic, PERRLA Neck: Supple, trachea midline, no JVD Chest: Clear to auscultation bilaterally Cardiovascular: RRR, S1&S2 Abdomen: Soft and nontender Extremities: No cyanosis/clubbing/or edema Central Nervous System: CN II-XII intact, no focal deficits Musculoskeletal: No paraspinal muscle tenderness, no muscle spasm Skin: Warm and intact *Problems/Diagnosis: (1) GI bleed Status: Acute Total Time Spent on D/C: > 30 Minutes Date of Service: Nov 15, 2024 Billing Provider: IRENE SOLORIO Common Visit Codes: 98651-IMF/OBS DISCH DAY >30min IRENE SOLORIO Nov 15, 2024 13:11
--- NOTE | 2024-11-17 18:11 | PATHOLOGY REPORT ---
[facility] [address] [place] [address] SURGICAL PATHOLOGY REPORT CaseNumber: [id number] Surgeon:Mason Ramirez M.D. CLINICAL INFORMATION CLINICAL INFORMATION: Hematemesis. DIAGNOSIS DIAGNOSIS: STOMACH, ANTRUM; BIOPSY - MINIMAL CHRONIC INFLAMMATION. - NEGATIVE FOR INTESTINAL METAPLASIA. - NEGATIVE FOR H. PYLORI BY IMMUNOPEROXIDASE STUDY. - NEGATIVE FOR DYSPLASIA/NEOPLASIA. MICROSCOPIC DESCRIPTION MICROSCOPIC DESCRIPTION: One H&E stained slide is examined. Present is gastric antral mucosa which co ntains a minimal chronic inflammatory infiltrate composed predominately of lymphocytes. There is no s ignificant active inflammation and no intestinal metaplasia, confirmed with Alcian-Blue/PAS stain. Im munoperoxidase study for H. pylori does not highlight organisms. There is no dysplasia/neoplasia. (bb ) GROSS DESCRIPTION GROSS DESCRIPTION: Received in a container of formalin labeled with the patient's name, number, and " antrum" is a 0.3 cm piece of smith tissue. The specimen is entirely submitted as A1. The time at which the specimen was removed was 1225. The time at which the specimen was placed in formalin was 1225. Electronically signed by: Yash Rankin M.D. 11/17/2024 5:30:00 PM
== END 2024-11-15 12:20 | disposition home or self-care (01) | DRG 241 ==
LOC: ER 06:52 → ED HOLD 14:06 → ORTHO 4S 16:30
PROVIDERS: ADMIT Nurse Practitioner Family; ATTEND Nurse Practitioner Family
PROC: 0DB78ZX Excision of Stomach, Pylorus, Via Natural or Artificial Opening Endoscopic, Diagnostic (ICD-10-PCS; 2024-11-14)
PROC: 0DB68ZX Excision of Stomach, Via Natural or Artificial Opening Endoscopic, Diagnostic (ICD-10-PCS; principal; 2024-11-14 12:08)
DX: K29.71 Gastritis, unspecified, with bleeding (principal); N17.0 Acute kidney failure with tubular necrosis; G93.41 Metabolic encephalopathy; K22.11 Ulcer of esophagus with bleeding; I48.91 Unspecified atrial fibrillation; E86.0 Dehydration; D32.9 Benign neoplasm of meninges, unspecified; E66.812 Obesity, class 2; F10.229 Alcohol dependence with intoxication, unspecified; I10 Essential (primary) hypertension; F17.210 Nicotine dependence, cigarettes, uncomplicated; G43.909 Migraine, unspecified, not intractable, without status migrainosus; Z68.38 Body mass index [BMI] 38.0-38.9, adult; Z88.5 Allergy status to narcotic agent
CPT/HCPCS: 36415; 43239; 70553; 80048; 80053; 80305; 80320; 81001; 82272; 82948; 83036; 83735; 84484; 85025; 87045; 87046; 87081; 93005; 96361; 96374; 96375; 99285; A4620; G0378; J0330; J0360; J0780; J1200; J1885; J2003; J2250; J2405; J2470; J2704; J3411; J3490; J7030; J7040